=== PATIENT | female | born 1990 | race Caucasian/White ===

== ENCOUNTER 2017-02-17 01:21 | Inpatient (IN) | payer OTHER ==
[~2017-02-17] VITALS: Ht 167.6 cm; Wt 72.6 kg
[2017-02-17 02:15] LABS: HCT 33.3 % (37.0-47.0); MCH 33.2 pg (25.0-31.0); MCV 92.2 fL (78.0-100.0); MPV 9.7 fL (6.0-9.5); RBC 3.61 M/uL (4.20-5.40); RDW 12.9 % (11.5-14.0); WBC 16.3 K/uL (4.0-10.5)
[2017-02-17 02:16] LABS: BILIRUBIN NEGATIVE (NEGATIVE); BLOOD 3+ Ery/uL (NEGATIVE); COLOR YELLOW (YELLOW); GLUCOSE (U) NORMAL (NORMAL); KETONE (U) 2+ (MODERATE) mg/dL (NEGATIVE); LEUKOCYTES 2+ Leu/uL (NEGATIVE); NITRITE NEGATIVE (NEGATIVE); PROTEIN 2+ mg/dL (NEGATIVE); UROBILINOGEN 0.2 mg/dL (0.2-1.0)
[2017-02-17 02:17] LABS: CLARITY HAZY (CLEAR)
[2017-02-17 02:21] LABS: BACTERIA 2+; URINARY RBC 20-50; URINARY WBC 20-50
[2017-02-18 05:38] LABS: HCT 28.9 % (37.0-47.0); HGB 9.9 g/dl (12.5-16.0); MCH 32.6 pg (25.0-31.0); MCHC 34.3 g/dL (32.0-36.0); MCV 95.1 fL (78.0-100.0); MPV 9.6 fL (6.0-9.5); RBC 3.04 M/uL (4.20-5.40); RDW 13.1 % (11.5-14.0); WBC 16.9 K/uL (4.0-10.5)
== END 2017-02-19 16:20 | disposition home or self-care (01) | DRG 775 ==
LOC: FOD 01:21 → FOB 01:21 → FOD 01:50 → FOB 01:51
PROVIDERS: ADMIT Obstetrics & Gynecology
PROC: 10E0XZZ Delivery of Products of Conception, External Approach (ICD-10-PCS; principal; 2017-02-17)
PROC: 4A1HX4Z Monitoring of Products of Conception, Cardiac Electrical Activity, External Approach (ICD-10-PCS; 2017-02-17)
PROC: 0HQ9XZZ Repair Perineum Skin, External Approach (ICD-10-PCS; 2017-02-17)
DX: O70.0 First degree perineal laceration during delivery (principal); O69.81X0 Labor and delivery complicated by cord around neck, without compression, not applicable or unspecified; Z3A.39 39 weeks gestation of pregnancy; Z37.0 Single live birth
CPT/HCPCS: 36415; 81001; J2405

== ENCOUNTER 2021-05-28 17:19 | Inpatient (IN) | payer OTHER ==
[~2021-05-28] VITALS: Ht 167.6 cm; Wt 75.7 kg
[2021-05-28 21:10] LABS: HCT 34.6 % (37.0-47.0); HGB 12.1 g/dl (12.5-16.0); MCH 33.2 pg (25.0-31.0); MCV 95.1 fL (78.0-100.0); MPV 9.8 fL (6.0-9.5); RBC 3.64 M/uL (4.20-5.40); RDW 13.1 % (11.5-14.0); WBC 10.1 K/uL (4.0-10.5)
[2021-05-28 21:11] LABS: BILIRUBIN NEGATIVE (NEGATIVE); BLOOD NEGATIVE Ery/uL (NEGATIVE); CLARITY CLEAR (CLEAR); COLOR YELLOW (YELLOW); GLUCOSE (U) NORMAL (NORMAL); LEUKOCYTES NEGATIVE Leu/uL (NEGATIVE); NITRITE NEGATIVE (NEGATIVE); PROTEIN NEGATIVE (NEGATIVE); SPECIFIC GRAVITY 1.015 (1.001-1.030); UROBILINOGEN 0.2 mg/dL (0.2-1.0)
[2021-05-30 05:45] LABS: HCT 28.8 % (37.0-47.0); HGB 9.7 g/dl (12.5-16.0); MCH 33.1 pg (25.0-31.0); MCHC 33.7 g/dL (32.0-36.0); MCV 98.3 fL (78.0-100.0); MPV 9.7 fL (6.0-9.5); RBC 2.93 M/uL (4.20-5.40); RDW 13.3 % (11.5-14.0); WBC 12.7 K/uL (4.0-10.5)
== END 2021-05-30 20:55 | disposition home or self-care (01) | DRG 806 ==
LOC: FOB 17:19
PROVIDERS: ADMIT Obstetrics & Gynecology
PROC: 10E0XZZ Delivery of Products of Conception, External Approach (ICD-10-PCS; principal; 2021-05-28)
PROC: 0KQM0ZZ Repair Perineum Muscle, Open Approach (ICD-10-PCS; 2021-05-28)
DX: O36.63X0 Maternal care for excessive fetal growth, third trimester, not applicable or unspecified (principal); D62 Acute posthemorrhagic anemia; Z37.0 Single live birth; Z20.822 Contact with and (suspected) exposure to COVID-19; O70.1 Second degree perineal laceration during delivery; Z3A.39 39 weeks gestation of pregnancy; O99.03 Anemia complicating the puerperium; O99.52 Diseases of the respiratory system complicating childbirth; J20.9 Acute bronchitis, unspecified
CPT/HCPCS: 36415; 81003; J2300; J2405; J2916; J3010; J7120; U0002